=== PATIENT | female | born 2000 ===

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

== ENCOUNTER 2019-08-26 17:58 | Outpatient (REF) | payer OTHER, SELFPAY ==
[2019-08-26 19:12] LABS: TSH (W/Ref FT4) 0.79 uIU/mL (0.36-3.74)
[2019-08-30 14:53] LABS: Chlamydia Result Negative (Negative); GC Result Negative (Negative)
== END 2019-08-26 18:18 ==
LOC: NCHCN 17:58
PROVIDERS: PCP Family Medicine; Visit Provider Family Medicine
DX: E03.9 Hypothyroidism, unspecified (principal); Z11.3 Encounter for screening for infections with a predominantly sexual mode of transmission
CPT/HCPCS: 87491; 87591; 84443

== ENCOUNTER 2020-09-01 11:34 | Outpatient (REF) | payer OTHER, SELFPAY ==
--- NOTE | 2020-09-01 09:30 | PAPFT_PTH ---
PATIENT: Madison Jaramillo LOC: [facility] U#:[id number] AGE/SX: 20/F ROOM: RE09/01/[address]: Samreen Jennings : 2000 BED: DIS: 09/01/2020 SPEC #: [id number] RECD: 09/04/20 12:54 STATUS: TOMÁS RELiseth #: [id number] ANTONETTE: 09/01/20 09:[address]: Samreen Jennings DEPT: [facility] Cytology RECD BY: Altagracia Mckeon ENTERED: 09/04/20 12:55 SP TYPE: PAPFT OTHR DR: Bharat Romero Tissues: 1 - CX/ENDOCX FOR PAP SMEARS Procedures: PAP THIN PREP/[facility] Screening Comments: [id number]
[2020-09-01 15:35] LABS: TSH (W/Ref FT4) 3.13 uIU/mL (0.36-3.74)
== END 2020-09-01 11:35 | disposition home or self-care (01) ==
LOC: NCHCN 11:34
PROVIDERS: PCP Family Medicine; Visit Provider Nurse Practitioner Family
DX: E03.9 Hypothyroidism, unspecified (principal); Z12.4 Encounter for screening for malignant neoplasm of cervix; Z01.419 Encounter for gynecological examination (general) (routine) without abnormal findings
CPT/HCPCS: 88142; 84443

== ENCOUNTER 2021-09-03 15:57 | Outpatient (REF) | payer OTHER, SELFPAY ==
[2021-09-03 17:14] LABS: TSH (W/Ref FT4) 1.19 uIU/mL (0.36-3.74)
[2021-09-04 09:48] LABS: Hepatitis B Surface Ag Negative (Negative)
[2021-09-04 10:15] LABS: Hepatitis C Ab w Rflx HCV PCR Negative (Negative)
[2021-09-04 10:20] LABS: HIV-1/2 Ag & Ab Screen Negative (Negative)
[2021-09-04 10:54] LABS: Syphilis Serology (RPR) Negative (Negative)
[2021-09-04 15:21] LABS: Chlamydia Result Negative (Negative); GC Result Negative (Negative)
== END 2021-09-03 15:58 | disposition home or self-care (01) ==
LOC: NCHCN 15:57
PROVIDERS: PCP Family Medicine; Visit Provider Family Medicine
DX: Z00.00 Encounter for general adult medical examination without abnormal findings (principal); E03.9 Hypothyroidism, unspecified; Z11.4 Encounter for screening for human immunodeficiency virus [HIV]; Z11.59 Encounter for screening for other viral diseases; Z11.3 Encounter for screening for infections with a predominantly sexual mode of transmission
CPT/HCPCS: 86803; 87340; 87389; 87491; 87591; 84443; 86592